=== PATIENT | male | born 1990 | race Caucasian/White ===

== ENCOUNTER 2018-02-09 17:19 | Emergency (ER) | payer OTHER ==
[~2018-02-09] VITALS: Ht 172.7 cm; Wt 68.5 kg
[2018-02-09 17:26] VITALS: TEMP 36.9; Ht 172.7 cm; Wt 68.5 kg
[2018-02-09] MEDS ORDERED: LORAZEPAM 2 MG/ML 1 ML VIAL IM STA (17:38)
--- NOTE | 2018-02-09 18:06 | EMERGENCY ROOM VISIT NOTE ---
ED Visit Note First contact with patient: 17:31 CHIEF COMPLAINT: Left Shoulder injury HISTORY OF PRESENT ILLNESS: This 27-year-old male patient presents to the emergency department today complaining of left shoulder dislocation. The patient states he was doing pull-ups with a sheet when he experienced immediate 10/10 pain and noticed his left shoulder was dislocated. There is marked limitation of motion of the arm because of the pain. The patient did not hear a cracking the sound at the time of the injury. The pain is steady and severe and much worse with any movement of the arm. The patient is holding his arm in an extended and abducted position. Patient does report a history of shoulder dislocations in the past. He states he did have a left rotator cuff repair in the past peer REVIEW OF SYSTEMS: A complete 6 point review of systems was reviewed with the patient with pertinent positives and negatives as per history of present illness. All else were negative. PMH: The patient is healthy; there is no significant medical or surgical history. MEDS: None ALLERGIES: None SOCIAL HISTORY: Patient lives is an inmate at [facility] . Admits to smoking tobacco. Denies drug or alcohol use. PHYSICAL EXAM: Vital Signs: Reviewed nurse's notes. BP slightly elevated, otherwise vital signs normal. MUSCULOSKELETAL: The shoulder is slightly swollen and deformed on inspection. There is a palpable defect on the anterior aspect of the shoulder and the entire anterior shoulder is tender. The range of motion is markedly reduced in all directions because of the pain. There is no tenderness of the distal clavicle. HEART: RRR without murmurs, gallops, or rubs. LUNGS: The lungs are clear to auscultation. No wheezes, rhonchi, or rales RADIOLOGY: LEFT SHOULDER 2 VIEWS HISTORY: left shoulder pain/?dislocation COMPARISON: None. FINDINGS: Left anterior shoulder dislocation. There is a metallic anchor within the left humeral head consistent with prior postoperative change. The left clavicle is intact. No acute fractures identified. Small ossific density adjacent to the inferior glenoid is likely due to old trauma. Soft tissues are unremarkable. No radiopaque foreign bodies. IMPRESSION: Left anterior shoulder dislocation. Electronically signed by: Rancho Willard M.D. 02/09/2018 6:29 PM Dictated Date/Time: 02/09/2018 6:28 PM L SHOULDER MIN 2 VIEWS ROUTINE HISTORY: 27 years-old Male post-reduction status post reduction of left shoulder dislocation COMPARISON: Left shoulder radiographs of same day at 5:30 PM TECHNIQUE: 2 views of the left shoulder FINDINGS: Orthopedic anchor about the anterior glenoid suggests prior labral repair. Remote appearing Hill-Sachs deformity. No acute fracture or dislocation. The humeral head is now located within the glenoid fossa. Mild soft tissue swelling. IMPRESSION: 1. Satisfactory alignment of the glenohumeral joint without acute fracture or dislocation. 2. Remote appearing Hill-Sachs deformity. The above report was generated using voice recognition software. It may contain grammatical, syntax or spelling errors. Electronically signed by: Familia Lu M.D. 02/09/2018 6:29 PM Dictated Date/Time: 02/09/2018 6:27 PM EMERGENCY DEPARTMENT COURSE: The patient was seen and evaluated as above. X- ray performed reviewed by myself and radiologist as above. Verbal consent obtained from the patient to perform the procedure. The patient was placed in a prone position with his left arm hanging over the side of the bed. The arm was supinated and flexed at the elbow with gentle traction applied. After about a minute or two the shoulder was felt to reduce. Post reduction x-ray reviewed by myself and radiologist as above. An arm sling was placed. Discharge instructions reviewed, patient was discharged home in good condition. I attest that I have personally reviewed the patient's current medication list. Patient was found to have normal blood pressure on screening and does not require follow-up. Etiologies such as soft tissue injury, fracture, dislocation, neurovascular compromise, compartment syndrome, as well as others were entertained. DIAGNOSIS: Left anterior shoulder dislocation The chart was completed utilizing [employer] voice recognition software. Grammatical errors, random word insertions, pronoun errors, and incomplete sentences are an occasional consequence of this system due to software limitations, ambient noise, and hardware issues. Any formal questions or concerns about the content, text, or information contained within the body of this dictation should be directly addressed to the provider for clarification. Vital Signs Date Time Temp Pulse Resp B/P (MAP) Pulse Ox O2 Delivery O2 Flow Rate FiO2 02/09/18 19:23 68 18 117/73 100 02/09/18 18:28 65 18 112/67 96 Room Air 02/09/18 17:26 36.9 74 20 157/94 100 Room Air Departure Information Impression Primary Impression: Shoulder dislocation Dispostion Home / Self-Care Condition GOOD Referrals Yuly Alfaro M.D. (PCP) Patient Instructions ED Dislocation Shoulder Redu, [facility] Additional Instructions You have been treated in the Emergency Department for Shoulder dislocation. This was successfully reduced. For pain control, you can use the following [id number]-[id number] medicines (if >12 yo): Ibuprofen(Motrin, Advil) may be used for fever or pain. Use 600mg every six hours as needed. Take with food. Avoid using more than 2400mg in a 24 hour period. Do not use 2400mg per day for more than three consecutive days without physician direction. Prolonged inappropriate use can lead to stomach upset or ulcers. (AND/OR) Acetaminophen(Tylenol) may be used for fever or pain. Use 1000mg every six hours as needed. Avoid using more than 3000mg in a 24 hour period. If this is a recent injury (<24 hrs), ice can be applied to the area of pain for the first 3 days to help decrease pain and inflammation. You have been provided the number for an Orthopaedic Surgeon. You should call this number as soon as possible to establish a follow-up visit from today's Emergency Department visit. Keep the arm sling in place until evaluated by Orthopedics. Return to the Emergency Department if your current symptoms worsen despite treatment course outlined above, or if you develop any of the following symptoms : intractable pain despite aforementioned treatment course or new onset of numbness or tingling of the arm. Problem Qualifiers Primary Impression: Shoulder dislocation Encounter type: initial encounter Laterality: left Qualified Codes: S43.005A - Unspecified dislocation of left shoulder joint, initial encounter
--- NOTE | 2018-02-09 18:30 | DIAGNOSTIC IMAGING REPORT ---
L SHOULDER MIN 2 VIEWS ROUTINE HISTORY: 27 years-old Male post-reduction status post reduction of left shoulder dislocation COMPARISON: Left shoulder radiographs of same day at 5:30 PM TECHNIQUE: 2 views of the left shoulder FINDINGS: Orthopedic anchor about the anterior glenoid suggests prior labral repair. Remote appearing Hill-Sachs deformity. No acute fracture or dislocation. The humeral head is now located within the glenoid fossa. Mild soft tissue swelling. IMPRESSION: 1. Satisfactory alignment of the glenohumeral joint without acute fracture or dislocation. 2. Remote appearing Hill-Sachs deformity. The above report was generated using voice recognition software. It may contain grammatical, syntax or spelling errors. Electronically signed by: Familia Lu M.D. 02/09/2018 6:29 PM Dictated Date/Time: 02/09/2018 6:27 PM
--- NOTE | 2018-02-09 18:31 | DIAGNOSTIC IMAGING REPORT ---
LEFT SHOULDER 2 VIEWS HISTORY: left shoulder pain/?dislocation COMPARISON: None. FINDINGS: Left anterior shoulder dislocation. There is a metallic anchor within the left humeral head consistent with prior postoperative change. The left clavicle is intact. No acute fractures identified. Small ossific density adjacent to the inferior glenoid is likely due to old trauma. Soft tissues are unremarkable. No radiopaque foreign bodies. IMPRESSION: Left anterior shoulder dislocation. Electronically signed by: Rancho Willard M.D. 02/09/2018 6:29 PM Dictated Date/Time: 02/09/2018 6:28 PM
[2018-02-09 19:23] VITALS: BP 117/73; PULSE 68; O2SAT 100
== END 2018-02-09 19:27 | disposition home or self-care (01) ==
LOC: C.EDB 17:21
DX: S43.015A Anterior dislocation of left humerus, initial encounter (principal); X50.1XXA Overexertion from prolonged static or awkward postures, initial encounter; Y92.149 Unspecified place in prison as the place of occurrence of the external cause; Y93.B2 Activity, push-ups, pull-ups, sit-ups; F17.210 Nicotine dependence, cigarettes, uncomplicated